=== PATIENT | female | born 1980 | race Caucasian/White ===

== ENCOUNTER → 2021-07-12 12:50 | Outpatient (CLI) | payer OTHER, SELFPAY ==
--- NOTE | ~2021-07-12 | CT_ITS ---
EXAMINATION: CT sinus wo con DATE: 07/12/2021 13:11 INDICATION: Chronic sinusitis. Chronic congestion. TECHNIQUE: Computed tomography (CT) of the paranasal sinuses was performed without contrast. Iterativ e reconstruction technique was employed. Exam dose: 282.66 mGy-cm total exam DLP. COMPARISON: None FINDINGS: There is slight rightward bowing of the nasal septum. The nasal turbinates are moderately p rominent and symmetric in size. The ostiomeatal units are patent. There is mild mucoperiosteal thickening of the maxillary sinuses and to a lesser extent sphenoid sinu ses and ethmoid air cells. Mastoid air cells are normally developed and aerated. IMPRESSION: Mild mucosal periosteal thickening of the maxillary and sphenoid sinuses and ethmoid air cells Reviewed, dictated and finalized at [facility]. Reviewed, dictated and finalized at [facility]. IMPRESSION: Mild mucosal periosteal thickening of the maxillary and sphenoid s inuses and ethmoid air cells
== END ==
PROVIDERS: PCP Family Medicine; Visit Provider Otolaryngology
DX: J32.9 Chronic sinusitis, unspecified (principal)
CPT/HCPCS: 70486

== ENCOUNTER → 2023-03-02 10:35 | Outpatient (CLI) | payer OTHER, SELFPAY ==
--- NOTE | ~2023-03-02 | MM_ITS ---
EXAMINATION: MM screening adria BI w vanessa HISTORY: Screening mammogram TECHNIQUE: Craniocaudal and mediolateral oblique 3-D tomosynthesis images were obtained and synthetic 2-D images were generated. CAD analysis was submitted and interpreted. COMPARISON: No prior mammogram is available for comparison at this institution. BREAST PARENCHYMAL COMPOSITION: There are scattered areas of fibroglandular density. FINDINGS: No suspicious mass, calcification, or architectural distortion are identified in either kirby ast to suggest malignancy. IMPRESSION: 1. No mammographic evidence of malignancy. 2. Recommend routine screening mammography in one year. BI-RADS Category 1: Negative Reviewed, dictated and finalized at [facility].
== END ==
PROVIDERS: PCP Nurse Practitioner Women's Health
DX: Z12.31 Encounter for screening mammogram for malignant neoplasm of breast (principal)
CPT/HCPCS: 77063; 77067